=== PATIENT | female | born 1980 | race Caucasian/White ===

== ENCOUNTER 2018-09-11 18:07 | Emergency (ER) | payer SELFPAY ==
[~2018-09-11] VITALS: Ht 172.7 cm; Wt 73.9 kg
[2018-09-11 18:16] VITALS: BP 121/63; PULSE 89; RESP 18; Ht 172.7 cm; Wt 73.9 kg
[2018-09-11] MEDS ORDERED: FAMO-96 PO (18:39)
[2018-09-11] MEDS ORDERED: PRED20TA PO (18:39)
[2018-09-11] MEDS ORDERED: EPIN0.3P4 INJ (18:39)
[2018-09-11] MEDS ORDERED: BEN25 PO (18:39)
--- NOTE | 2018-09-11 18:44 | ERD ---
ER Documentation Chief Complaint Chief Complaint RASH /HIVES ON NECK AND ABDOMEN , S/P INSECT BITE IN PARK HPI 37-year-old female with no reported past medical history who presents status p ost insect bite with reported allergic reaction and skin rash. Patient states [place] the [place] when she was bitten by some type of flying insect. Since that time she does develop diffuse rash most prominent on upper extremities torso and back. Subsequent to the event she denies any respiratory symptoms such as shortness of breath, tongue swelling, lip swelling or any other worrisome concern conditions. She originally presented to clinic in [place] and treated with Benadryl as well as dexamethasone steroids. Since that time she reports improvement in rash. States she has a history of allergic reaction to insect bites and is requesting EpiPen at this time. She otherwise without complaint and no acute distress at time of this evaluation. ROS All systems reviewed and are negative except as per history of present illness. Medications Home Meds Active Scripts Epinephrine (Epipen 2-Yair) 0.3 Mg/0.3 Ml Pen.injctr, 1 EA INJ ONCE PRN for ALLERGIC REACTION, #1 EA Prov:EMILY EVERETT-C 09/11/18 Famotidine* (Pepcid*) 20 Mg Tablet, 20 MG PO BID for 4 Days, TAB Prov:EMILY EVERETT PA-C 09/11/18 Diphenhydramine Hcl* (Benadryl*) 25 Mg Cap, 25 MG PO Q6, #30 CAP Prov:EMILY EVERETT PA-C 09/11/18 Prednisone* (Prednisone*) 20 Mg Tab, 40 MG PO DAILY for 4 Days, TAB Prov:EMILY EVERETT PA-C 09/11/18 PMhx/Soc History of Surgery: No Hx Miscellaneous Medical Probl: Yes (gastritis) Hx Alcohol Use: No Hx Substance Use: No Hx Tobacco Use: No Smoking Status: Never smoker FmHx Family History: No diabetes, No coronary disease, No other Physical Exam Vitals Vital Signs Date Temp Pulse Resp B/P (MAP) Pulse Ox O2 O2 Flow FiO2 Time Delivery Rate 09/11/18 98.1 89 18 121/63 99 18:16 (82) Physical Exam Const: No acute distress Head: Atraumatic Eyes: Normal Conjunctiva ENT: Normal External Ears, Nose and Mouth. Neck: Full range of motion. No meningismus. Resp: Clear to auscultation bilaterally Cardio: Regular rate and rhythm, no murmurs Abd: Soft, non tender, non distended. Normal bowel sounds Skin: Erythematous, diffuse, blanchable rash to upper torso bilateral upper extremities and back Back: No midline or flank tenderness Ext: No cyanosis, or edema Neur: Awake and alert Psych: Normal Mood and Affect Procedures/MDM 37-year-old female who presents with allergic reaction status post insect bite. She denies any respiratory symptoms I have low suspicion for any acute process warranting further emergent care work-up. Patient received treated with Benadryl and dexamethasone at a local clinic. Will discharge with Benadryl, H2 miriam, short course of steroids, EpiPen as requested. Patient advised follow- up PMD and strict return precautions explained in detail. DISPOSITION PLAN: We discussed follow up with the patient's primary care doctor within 24 to 48 hours. Patient counseled regarding my diagnostic impression and care plan. Prior to discharge all questions answered. Pt agrees with treatment plan and understands strict return precautions. Precautionary instructions provided including instructions to return to the ER if not improving or for any worsening or changing symptoms or concerns. Disclaimer: Inadvertent spelling and grammatical errors are likely due to EHR/dictation software use and do not reflect on the overall quality of patient care. Also, please note that the electronic time recorded on this note does not necessarily reflect the actual time of the patient encounter. Departure Diagnosis: Primary Impression: Insect bite Condition: Stable Patient Instructions: Allergic Reaction, Insect (General) Referrals: [facility] YOU HAVE RECEIVED A MEDICAL SCREENING EXAM AND THE RESULTS INDICATE THAT YOU DO NOT HAVE A CONDITION THAT REQUIRES URGENT TREATMENT IN THE EMERGENCY DEPARTMENT. FURTHER EVALUATION AND TREATMENT OF YOUR CONDITION CAN WAIT UNTIL YOU ARE SEEN IN YOUR DOCTORS OFFICE WITHIN THE NEXT 1-2 DAYS. IT IS YOUR RESPONSIBILITY TO MAKE AN APPOINTMENT FOR FOLOW-UP CARE. IF YOU HAVE A PRIMARY DOCTOR --you should call your primary doctor and schedule an appointment IF YOU DO NOT HAVE A PRIMARY DOCTOR YOU CAN CALL OUR PHYSICIAN REFERRAL HOTLINE AT IF YOU CAN NOT AFFORD TO SEE A PHYSICIAN YOU CAN CHOSE FROM THE FOLLOWING [facility] [address] [facility] [facility] [address] [facility] [place] [facility] [address] [facility] [address] [facility]. [facility] [address] [facility]. [facility] [address] Additional Instructions: Call your primary care doctor TOMORROW for an appointment during the next 2-3 days.See the doctor sooner or return here if your condition worsens before your appointment time. EMILY EVERETT PA-C Sep 11, 2018 18:44
== END 2018-09-11 18:50 | disposition home or self-care (01) ==
LOC: FTE 18:07
DX: S60.561A Insect bite (nonvenomous) of right hand, initial encounter (principal); S60.562A Insect bite (nonvenomous) of left hand, initial encounter; S20.469A Insect bite (nonvenomous) of unspecified back wall of thorax, initial encounter; W57.XXXA Bitten or stung by nonvenomous insect and other nonvenomous arthropods, initial encounter; Y92.89 Other specified places as the place of occurrence of the external cause
CPT/HCPCS: 99283